=== PATIENT | male | born 1960 | race Native Hawaiian/Other Pacific Islander ===

== ENCOUNTER 2019-07-21 10:59 | Outpatient (CLI) | payer OTHER, BC | END 2019-07-21 23:20 | disposition home or self-care (01) | LOC: US 10:59 | DX: M79.662 Pain in left lower leg (principal); R22.42 Localized swelling, mass and lump, left lower limb ==

== ENCOUNTER 2020-03-06 10:28 | Outpatient (CLI) | payer OTHER, BC ==
[2020-03-06 11:01] LABS: PLATELET COUNT 161 K/uL (142-355)
[2020-03-06 11:44] LABS: POTASSIUM 4.2 mmol/L (3.6-5.2)
== END 2020-03-06 19:03 | disposition home or self-care (01) ==
LOC: LABW 10:28
PROVIDERS: Internal Medicine
DX: E11.9 Type 2 diabetes mellitus without complications (principal); R53.83 Other fatigue; I10 Essential (primary) hypertension
CPT/HCPCS: 36415; 80053; 80061; 83036; 84439; 84443; 85027

== ENCOUNTER 2020-08-09 08:52 | Outpatient (CLI) | payer OTHER, BC | END 2020-08-09 19:09 | disposition home or self-care (01) | LOC: RESP 08:52 | DX: I10 Essential (primary) hypertension (principal); R06.02 Shortness of breath ==

== ENCOUNTER 2020-08-10 11:01 | Outpatient (CLI) | payer OTHER, BC | END 2020-08-10 19:11 | disposition home or self-care (01) | LOC: RESP 11:01 | DX: R06.02 Shortness of breath (principal); Z91.89 Other specified personal risk factors, not elsewhere classified ==

== ENCOUNTER 2021-01-10 13:14 | Outpatient (CLI) | payer BC ==
[~2021-01-10] VITALS: Ht 188 cm; Wt 173.7 kg
== END 2021-01-10 22:16 | disposition home or self-care (01) ==
LOC: DIABINF 13:14
PROVIDERS: ATTEND Internal Medicine Endocrinology, Diabetes & Metabolism
DX: E11.42 Type 2 diabetes mellitus with diabetic polyneuropathy (principal); I10 Essential (primary) hypertension; N40.0 Benign prostatic hyperplasia without lower urinary tract symptoms; F41.9 Anxiety disorder, unspecified; E66.01 Morbid (severe) obesity due to excess calories; E55.9 Vitamin D deficiency, unspecified
CPT/HCPCS: 82948; 96365; 96366; 96521; 99204; J1718; J1815

== ENCOUNTER 2021-01-11 12:30 | Outpatient (CLI) | payer BC ==
[~2021-01-11] VITALS: Ht 188 cm; Wt 173.7 kg
== END 2021-01-11 20:48 | disposition home or self-care (01) ==
LOC: DIABINF 12:30
PROVIDERS: ATTEND Internal Medicine Endocrinology, Diabetes & Metabolism
DX: E11.42 Type 2 diabetes mellitus with diabetic polyneuropathy (principal); I10 Essential (primary) hypertension; N40.0 Benign prostatic hyperplasia without lower urinary tract symptoms; F41.9 Anxiety disorder, unspecified; E66.01 Morbid (severe) obesity due to excess calories; E55.9 Vitamin D deficiency, unspecified; E11.65 Type 2 diabetes mellitus with hyperglycemia; I73.89 Other specified peripheral vascular diseases; M54.16 Radiculopathy, lumbar region
CPT/HCPCS: 82948; 96365; 96366; 96521; 99214; J1718; J1815

== ENCOUNTER 2021-01-17 12:56 | Outpatient (CLI) | payer BC ==
[~2021-01-17] VITALS: Ht 188 cm; Wt 173.7 kg
== END 2021-01-17 20:51 | disposition home or self-care (01) ==
LOC: DIABINF 12:56
PROVIDERS: ATTEND Internal Medicine Endocrinology, Diabetes & Metabolism
DX: E11.42 Type 2 diabetes mellitus with diabetic polyneuropathy (principal); E11.65 Type 2 diabetes mellitus with hyperglycemia; I10 Essential (primary) hypertension; N40.0 Benign prostatic hyperplasia without lower urinary tract symptoms; F41.9 Anxiety disorder, unspecified; E66.01 Morbid (severe) obesity due to excess calories; E55.9 Vitamin D deficiency, unspecified; M54.16 Radiculopathy, lumbar region
CPT/HCPCS: 82948; 96365; 96366; 96521; 99214; J1718; J1815

== ENCOUNTER 2021-01-18 11:13 | Outpatient (CLI) | payer BC ==
[~2021-01-18] VITALS: Ht 188 cm; Wt 173.7 kg
== END 2021-01-18 21:51 | disposition home or self-care (01) ==
LOC: DIABINF 11:13
PROVIDERS: ATTEND Internal Medicine Endocrinology, Diabetes & Metabolism
DX: E11.65 Type 2 diabetes mellitus with hyperglycemia (principal); E11.42 Type 2 diabetes mellitus with diabetic polyneuropathy; N40.0 Benign prostatic hyperplasia without lower urinary tract symptoms; F41.1 Generalized anxiety disorder; E66.01 Morbid (severe) obesity due to excess calories; Z68.42 Body mass index [BMI] 45.0-49.9, adult; I87.2 Venous insufficiency (chronic) (peripheral); E55.9 Vitamin D deficiency, unspecified; M19.09 Primary osteoarthritis, other specified site; M54.16 Radiculopathy, lumbar region
CPT/HCPCS: 82948; 96365; 96366; 96521; 99214; J1718; J1815

== ENCOUNTER 2021-01-24 12:19 | Outpatient (CLI) | payer BC ==
[~2021-01-24] VITALS: Ht 188 cm; Wt 173.7 kg
== END 2021-01-24 21:37 | disposition home or self-care (01) ==
LOC: DIABINF 12:19
PROVIDERS: ATTEND Internal Medicine Endocrinology, Diabetes & Metabolism
DX: E11.65 Type 2 diabetes mellitus with hyperglycemia (principal); E11.42 Type 2 diabetes mellitus with diabetic polyneuropathy; N40.0 Benign prostatic hyperplasia without lower urinary tract symptoms; F41.1 Generalized anxiety disorder; E66.01 Morbid (severe) obesity due to excess calories; Z68.42 Body mass index [BMI] 45.0-49.9, adult; I87.2 Venous insufficiency (chronic) (peripheral); E55.9 Vitamin D deficiency, unspecified; M19.09 Primary osteoarthritis, other specified site; M54.16 Radiculopathy, lumbar region
CPT/HCPCS: 82948; 96365; 96366; 96521; 99214; J1718; J1815

== ENCOUNTER 2021-01-25 12:19 | Outpatient (CLI) | payer BC ==
[~2021-01-25] VITALS: Ht 188 cm; Wt 173.7 kg
== END 2021-01-25 21:17 | disposition home or self-care (01) ==
LOC: DIABINF 12:19
PROVIDERS: ATTEND Internal Medicine Endocrinology, Diabetes & Metabolism
DX: E11.65 Type 2 diabetes mellitus with hyperglycemia (principal); E11.42 Type 2 diabetes mellitus with diabetic polyneuropathy; N40.0 Benign prostatic hyperplasia without lower urinary tract symptoms; F41.1 Generalized anxiety disorder; E66.01 Morbid (severe) obesity due to excess calories; Z68.42 Body mass index [BMI] 45.0-49.9, adult; I87.2 Venous insufficiency (chronic) (peripheral); E55.9 Vitamin D deficiency, unspecified; M19.09 Primary osteoarthritis, other specified site; M54.16 Radiculopathy, lumbar region
CPT/HCPCS: 82948; 96365; 96366; 96521; 99214; J1718; J1815

== ENCOUNTER 2021-01-31 12:54 | Outpatient (CLI) | payer BC ==
[~2021-01-31] VITALS: Ht 188 cm; Wt 173.7 kg
== END 2021-01-31 19:24 | disposition home or self-care (01) ==
LOC: DIABINF 12:54
PROVIDERS: ATTEND Internal Medicine Endocrinology, Diabetes & Metabolism
DX: E11.65 Type 2 diabetes mellitus with hyperglycemia (principal); E11.42 Type 2 diabetes mellitus with diabetic polyneuropathy; N40.0 Benign prostatic hyperplasia without lower urinary tract symptoms; F41.1 Generalized anxiety disorder; E66.01 Morbid (severe) obesity due to excess calories; Z68.42 Body mass index [BMI] 45.0-49.9, adult; I87.2 Venous insufficiency (chronic) (peripheral); E55.9 Vitamin D deficiency, unspecified; M15.0 Primary generalized (osteo)arthritis; M54.16 Radiculopathy, lumbar region; S80.812A Abrasion, left lower leg, initial encounter
CPT/HCPCS: 82948; 96365; 96366; 96521; 99214; J1718; J1815

== ENCOUNTER 2021-02-07 12:56 | Outpatient (CLI) | payer BC ==
[~2021-02-07] VITALS: Ht 188 cm; Wt 173.7 kg
== END 2021-02-07 19:15 | disposition home or self-care (01) ==
LOC: DIABINF 12:56
PROVIDERS: ATTEND Internal Medicine Endocrinology, Diabetes & Metabolism
DX: E11.65 Type 2 diabetes mellitus with hyperglycemia (principal); E11.42 Type 2 diabetes mellitus with diabetic polyneuropathy; N40.0 Benign prostatic hyperplasia without lower urinary tract symptoms; F41.1 Generalized anxiety disorder; E66.01 Morbid (severe) obesity due to excess calories; Z68.42 Body mass index [BMI] 45.0-49.9, adult; I87.2 Venous insufficiency (chronic) (peripheral); E55.9 Vitamin D deficiency, unspecified; M15.0 Primary generalized (osteo)arthritis; M54.16 Radiculopathy, lumbar region; S80.812A Abrasion, left lower leg, initial encounter
CPT/HCPCS: 82948; 96365; 96366; 96521; 99213; J1718; J1815

== ENCOUNTER 2021-02-14 12:16 | Outpatient (CLI) | payer BC ==
[~2021-02-14] VITALS: Ht 185.4 cm; Wt 173.7 kg
== END 2021-02-14 19:48 | disposition home or self-care (01) ==
LOC: DIABINF 12:16
PROVIDERS: ATTEND Internal Medicine Endocrinology, Diabetes & Metabolism
DX: E11.65 Type 2 diabetes mellitus with hyperglycemia (principal); E11.42 Type 2 diabetes mellitus with diabetic polyneuropathy; N40.0 Benign prostatic hyperplasia without lower urinary tract symptoms; F41.1 Generalized anxiety disorder; E66.01 Morbid (severe) obesity due to excess calories; Z68.42 Body mass index [BMI] 45.0-49.9, adult; I87.2 Venous insufficiency (chronic) (peripheral); E55.9 Vitamin D deficiency, unspecified; M15.0 Primary generalized (osteo)arthritis; M54.16 Radiculopathy, lumbar region; S80.812A Abrasion, left lower leg, initial encounter
CPT/HCPCS: 82948; 96365; 96366; 96521; 99214; J1718; J1815

== ENCOUNTER 2021-02-21 12:32 | Outpatient (CLI) | payer BC ==
[~2021-02-21] VITALS: Ht 188 cm; Wt 173.7 kg
== END 2021-02-21 19:35 | disposition home or self-care (01) ==
LOC: DIABINF 12:32
PROVIDERS: ATTEND Internal Medicine Endocrinology, Diabetes & Metabolism
DX: E11.65 Type 2 diabetes mellitus with hyperglycemia (principal); E11.42 Type 2 diabetes mellitus with diabetic polyneuropathy; N40.0 Benign prostatic hyperplasia without lower urinary tract symptoms; F41.1 Generalized anxiety disorder; E66.01 Morbid (severe) obesity due to excess calories; Z68.42 Body mass index [BMI] 45.0-49.9, adult; I87.2 Venous insufficiency (chronic) (peripheral); E55.9 Vitamin D deficiency, unspecified; M15.0 Primary generalized (osteo)arthritis; M54.16 Radiculopathy, lumbar region; S80.812A Abrasion, left lower leg, initial encounter
CPT/HCPCS: 82948; 96365; 96366; 96521; 99214; J1718; J1815

== ENCOUNTER 2021-02-28 12:17 | Outpatient (CLI) | payer BC ==
[~2021-02-28] VITALS: Ht 188 cm; Wt 173.7 kg
== END 2021-02-28 19:38 | disposition home or self-care (01) ==
LOC: DIABINF 12:17
PROVIDERS: ATTEND Internal Medicine Endocrinology, Diabetes & Metabolism
DX: E11.65 Type 2 diabetes mellitus with hyperglycemia (principal); E11.42 Type 2 diabetes mellitus with diabetic polyneuropathy; N40.0 Benign prostatic hyperplasia without lower urinary tract symptoms; F41.1 Generalized anxiety disorder; E66.01 Morbid (severe) obesity due to excess calories; Z68.42 Body mass index [BMI] 45.0-49.9, adult; I87.2 Venous insufficiency (chronic) (peripheral); E55.9 Vitamin D deficiency, unspecified; M15.0 Primary generalized (osteo)arthritis; M54.16 Radiculopathy, lumbar region; S80.812A Abrasion, left lower leg, initial encounter
CPT/HCPCS: 82948; 96365; 96366; 96521; 99214; J1718; J1815

== ENCOUNTER 2021-03-07 12:22 | Outpatient (CLI) | payer BC ==
[~2021-03-07] VITALS: Ht 188 cm; Wt 173.7 kg
== END 2021-03-07 23:41 | disposition home or self-care (01) ==
LOC: DIABINF 12:22
PROVIDERS: ATTEND Internal Medicine Endocrinology, Diabetes & Metabolism
DX: E11.65 Type 2 diabetes mellitus with hyperglycemia (principal); E11.42 Type 2 diabetes mellitus with diabetic polyneuropathy; N40.0 Benign prostatic hyperplasia without lower urinary tract symptoms; F41.1 Generalized anxiety disorder; E66.01 Morbid (severe) obesity due to excess calories; Z68.42 Body mass index [BMI] 45.0-49.9, adult; I87.2 Venous insufficiency (chronic) (peripheral); E55.9 Vitamin D deficiency, unspecified; M15.0 Primary generalized (osteo)arthritis; M54.16 Radiculopathy, lumbar region; S80.812A Abrasion, left lower leg, initial encounter
CPT/HCPCS: 82948; 96365; 96366; 96521; J1815; J1817

== ENCOUNTER 2021-03-14 12:22 | Outpatient (CLI) | payer BC ==
[~2021-03-14] VITALS: Ht 188 cm; Wt 173.7 kg
== END 2021-03-14 19:54 | disposition home or self-care (01) ==
LOC: DIABINF 12:22
PROVIDERS: ATTEND Internal Medicine Endocrinology, Diabetes & Metabolism
DX: E11.65 Type 2 diabetes mellitus with hyperglycemia (principal); E11.42 Type 2 diabetes mellitus with diabetic polyneuropathy; N40.0 Benign prostatic hyperplasia without lower urinary tract symptoms; F41.1 Generalized anxiety disorder; E66.01 Morbid (severe) obesity due to excess calories; Z68.42 Body mass index [BMI] 45.0-49.9, adult; I87.2 Venous insufficiency (chronic) (peripheral); E55.9 Vitamin D deficiency, unspecified; M15.0 Primary generalized (osteo)arthritis; M54.16 Radiculopathy, lumbar region; S80.812D Abrasion, left lower leg, subsequent encounter
CPT/HCPCS: 82948; 96365; 96366; 96521; J1815; J1817

== ENCOUNTER 2021-03-21 12:35 | Outpatient (CLI) | payer BC ==
[~2021-03-21] VITALS: Ht 188 cm; Wt 173.7 kg
== END 2021-03-21 21:01 | disposition home or self-care (01) ==
LOC: DIABINF 12:35
PROVIDERS: ATTEND Nurse Practitioner
DX: E11.65 Type 2 diabetes mellitus with hyperglycemia (principal); E11.42 Type 2 diabetes mellitus with diabetic polyneuropathy; N40.0 Benign prostatic hyperplasia without lower urinary tract symptoms; F41.1 Generalized anxiety disorder; E66.01 Morbid (severe) obesity due to excess calories; Z68.42 Body mass index [BMI] 45.0-49.9, adult; I87.2 Venous insufficiency (chronic) (peripheral); E55.9 Vitamin D deficiency, unspecified; M15.0 Primary generalized (osteo)arthritis; M54.16 Radiculopathy, lumbar region; S80.812D Abrasion, left lower leg, subsequent encounter
CPT/HCPCS: 82948; 96365; 96366; 96521; J1815; J1817

== ENCOUNTER 2021-03-29 12:36 | Outpatient (CLI) | payer BC ==
[~2021-03-29] VITALS: Ht 188 cm; Wt 173.7 kg
== END 2021-03-29 22:20 | disposition home or self-care (01) ==
LOC: DIABINF 12:36
PROVIDERS: ATTEND Internal Medicine Endocrinology, Diabetes & Metabolism
DX: E11.65 Type 2 diabetes mellitus with hyperglycemia (principal); E11.42 Type 2 diabetes mellitus with diabetic polyneuropathy; N40.0 Benign prostatic hyperplasia without lower urinary tract symptoms; F41.1 Generalized anxiety disorder; E66.01 Morbid (severe) obesity due to excess calories; Z68.42 Body mass index [BMI] 45.0-49.9, adult; I87.2 Venous insufficiency (chronic) (peripheral); E55.9 Vitamin D deficiency, unspecified; M15.0 Primary generalized (osteo)arthritis; M54.16 Radiculopathy, lumbar region
CPT/HCPCS: 82948; 96365; 96366; 96521; J1815; J1817

== ENCOUNTER 2021-04-04 12:36 | Outpatient (CLI) | payer BC ==
[~2021-04-04] VITALS: Ht 188 cm; Wt 165.1 kg
== END 2021-04-04 21:49 | disposition home or self-care (01) ==
LOC: DIABINF 12:36
PROVIDERS: ATTEND Internal Medicine Endocrinology, Diabetes & Metabolism
DX: E11.65 Type 2 diabetes mellitus with hyperglycemia (principal); E11.42 Type 2 diabetes mellitus with diabetic polyneuropathy; N40.0 Benign prostatic hyperplasia without lower urinary tract symptoms; F41.1 Generalized anxiety disorder; E66.01 Morbid (severe) obesity due to excess calories; Z68.42 Body mass index [BMI] 45.0-49.9, adult; I87.2 Venous insufficiency (chronic) (peripheral); E55.9 Vitamin D deficiency, unspecified; M15.0 Primary generalized (osteo)arthritis; M54.16 Radiculopathy, lumbar region
CPT/HCPCS: 82948; 96365; 96366; 96521; J1815; J1817

== ENCOUNTER 2021-04-11 12:40 | Outpatient (CLI) | payer BC ==
[~2021-04-11] VITALS: Ht 188 cm; Wt 165.1 kg
== END 2021-04-11 20:02 | disposition home or self-care (01) ==
LOC: DIABINF 12:40
PROVIDERS: ATTEND Internal Medicine Endocrinology, Diabetes & Metabolism
DX: E11.42 Type 2 diabetes mellitus with diabetic polyneuropathy (principal); E11.65 Type 2 diabetes mellitus with hyperglycemia; E66.01 Morbid (severe) obesity due to excess calories; N40.0 Benign prostatic hyperplasia without lower urinary tract symptoms; I10 Essential (primary) hypertension; E78.2 Mixed hyperlipidemia; M19.91 Primary osteoarthritis, unspecified site
CPT/HCPCS: 82948; 96365; 96366; 96521; J1815; J1817

== ENCOUNTER 2021-04-18 12:17 | Outpatient (CLI) | payer BC ==
[~2021-04-18] VITALS: Ht 188 cm; Wt 165.1 kg
== END 2021-04-18 16:00 | disposition home or self-care (01) ==
LOC: DIABINF 12:17
PROVIDERS: ATTEND Internal Medicine Endocrinology, Diabetes & Metabolism
DX: E11.42 Type 2 diabetes mellitus with diabetic polyneuropathy (principal); E11.65 Type 2 diabetes mellitus with hyperglycemia; E66.01 Morbid (severe) obesity due to excess calories; N40.0 Benign prostatic hyperplasia without lower urinary tract symptoms; I10 Essential (primary) hypertension; E78.2 Mixed hyperlipidemia; M19.91 Primary osteoarthritis, unspecified site
CPT/HCPCS: 82948; 96365; 96366; 96521; J1815; J1817

== ENCOUNTER 2021-04-25 12:30 | Outpatient (CLI) | payer BC ==
[~2021-04-25] VITALS: Ht 188 cm; Wt 165.1 kg
== END 2021-04-25 16:00 | disposition home or self-care (01) ==
LOC: DIABINF 12:30
PROVIDERS: ATTEND Nurse Practitioner
DX: E11.65 Type 2 diabetes mellitus with hyperglycemia (principal); E66.01 Morbid (severe) obesity due to excess calories; N40.0 Benign prostatic hyperplasia without lower urinary tract symptoms; I10 Essential (primary) hypertension; E78.2 Mixed hyperlipidemia; M19.91 Primary osteoarthritis, unspecified site
CPT/HCPCS: 82948; 96365; 96366; 96521; J1815; J1817

== ENCOUNTER 2021-05-03 12:27 | Outpatient (CLI) | payer BC ==
[~2021-05-03] VITALS: Ht 188 cm; Wt 165.1 kg
== END 2021-05-03 19:17 | disposition home or self-care (01) ==
LOC: DIABINF 12:27
PROVIDERS: ATTEND Nurse Practitioner
DX: E11.42 Type 2 diabetes mellitus with diabetic polyneuropathy (principal); E11.65 Type 2 diabetes mellitus with hyperglycemia; E66.01 Morbid (severe) obesity due to excess calories; N40.0 Benign prostatic hyperplasia without lower urinary tract symptoms; I10 Essential (primary) hypertension; E78.2 Mixed hyperlipidemia; M19.91 Primary osteoarthritis, unspecified site
CPT/HCPCS: 82948; 96365; 96366; 96521; J1815; J1817

== ENCOUNTER 2021-05-09 12:54 | Outpatient (CLI) | payer BC ==
[~2021-05-09] VITALS: Ht 188 cm; Wt 165.3 kg
== END 2021-05-09 21:29 | disposition home or self-care (01) ==
LOC: DIABINF 12:54
PROVIDERS: ATTEND Nurse Practitioner
DX: E11.65 Type 2 diabetes mellitus with hyperglycemia (principal); E66.01 Morbid (severe) obesity due to excess calories; N40.0 Benign prostatic hyperplasia without lower urinary tract symptoms; I10 Essential (primary) hypertension; E78.2 Mixed hyperlipidemia; M19.91 Primary osteoarthritis, unspecified site
CPT/HCPCS: 82948; 96365; 96366; 96521; J1815; J1817

== ENCOUNTER 2021-05-16 12:33 | Outpatient (CLI) | payer BC ==
[~2021-05-16] VITALS: Ht 188 cm; Wt 165.1 kg
== END 2021-05-16 19:44 | disposition home or self-care (01) ==
LOC: DIABINF 12:33
PROVIDERS: ATTEND Nurse Practitioner
DX: E11.65 Type 2 diabetes mellitus with hyperglycemia (principal); E66.01 Morbid (severe) obesity due to excess calories; N40.0 Benign prostatic hyperplasia without lower urinary tract symptoms; I10 Essential (primary) hypertension; E78.2 Mixed hyperlipidemia; M19.90 Unspecified osteoarthritis, unspecified site
CPT/HCPCS: 82948; 96365; 96366; 96521; J1815; J1817

== ENCOUNTER 2021-05-23 12:40 | Outpatient (CLI) | payer BC ==
[~2021-05-23] VITALS: Ht 188 cm; Wt 165.1 kg
== END 2021-05-23 21:04 | disposition home or self-care (01) ==
LOC: DIABINF 12:40
PROVIDERS: ATTEND Nurse Practitioner
DX: E11.65 Type 2 diabetes mellitus with hyperglycemia (principal); E66.01 Morbid (severe) obesity due to excess calories; N40.0 Benign prostatic hyperplasia without lower urinary tract symptoms; I10 Essential (primary) hypertension; E78.2 Mixed hyperlipidemia; M19.90 Unspecified osteoarthritis, unspecified site; N43.2 Other hydrocele; Z98.890 Other specified postprocedural states; M48.061 Spinal stenosis, lumbar region without neurogenic claudication
CPT/HCPCS: 82948; 96365; 96366; 96521; J1815; J1817

== ENCOUNTER 2021-05-30 12:52 | Outpatient (CLI) | payer BC ==
[~2021-05-30] VITALS: Ht 188 cm; Wt 165.1 kg
== END 2021-05-30 22:44 | disposition home or self-care (01) ==
LOC: DIABINF 12:52
PROVIDERS: ATTEND Nurse Practitioner
DX: E11.65 Type 2 diabetes mellitus with hyperglycemia (principal); E66.01 Morbid (severe) obesity due to excess calories; N40.0 Benign prostatic hyperplasia without lower urinary tract symptoms; I10 Essential (primary) hypertension; E78.2 Mixed hyperlipidemia; M19.90 Unspecified osteoarthritis, unspecified site; N43.2 Other hydrocele; Z98.890 Other specified postprocedural states; M48.061 Spinal stenosis, lumbar region without neurogenic claudication
CPT/HCPCS: 82948; 96365; 96366; 96521; J1815; J1817

== ENCOUNTER 2021-06-06 12:49 | Outpatient (CLI) | payer BC ==
[~2021-06-06] VITALS: Ht 188 cm; Wt 165.1 kg
== END 2021-06-06 21:46 | disposition home or self-care (01) ==
LOC: DIABINF 12:49
PROVIDERS: ATTEND Nurse Practitioner
DX: E11.65 Type 2 diabetes mellitus with hyperglycemia (principal); E66.01 Morbid (severe) obesity due to excess calories; N40.0 Benign prostatic hyperplasia without lower urinary tract symptoms; I10 Essential (primary) hypertension; E78.2 Mixed hyperlipidemia; M19.90 Unspecified osteoarthritis, unspecified site; N43.2 Other hydrocele; Z98.890 Other specified postprocedural states; M48.061 Spinal stenosis, lumbar region without neurogenic claudication
CPT/HCPCS: 82948; 96365; 96366; 96521; J1815; J1817

== ENCOUNTER 2021-06-13 12:59 | Outpatient (CLI) | payer BC ==
[~2021-06-13] VITALS: Ht 188 cm; Wt 165.1 kg
== END 2021-06-13 19:13 | disposition home or self-care (01) ==
LOC: DIABINF 12:59
PROVIDERS: ATTEND Nurse Practitioner
DX: E11.65 Type 2 diabetes mellitus with hyperglycemia (principal); E66.01 Morbid (severe) obesity due to excess calories; N40.0 Benign prostatic hyperplasia without lower urinary tract symptoms; I10 Essential (primary) hypertension; E78.2 Mixed hyperlipidemia; M19.90 Unspecified osteoarthritis, unspecified site; N43.2 Other hydrocele; Z98.890 Other specified postprocedural states; M48.061 Spinal stenosis, lumbar region without neurogenic claudication
CPT/HCPCS: 82948; 96365; 96366; 96521; J1815; J1817

== ENCOUNTER 2021-06-20 12:52 | Outpatient (CLI) | payer BC ==
[~2021-06-20] VITALS: Ht 188 cm; Wt 165.1 kg
== END 2021-06-20 21:50 | disposition home or self-care (01) ==
LOC: DIABINF 12:52
PROVIDERS: ATTEND Nurse Practitioner
DX: E11.65 Type 2 diabetes mellitus with hyperglycemia (principal); E66.01 Morbid (severe) obesity due to excess calories; N40.0 Benign prostatic hyperplasia without lower urinary tract symptoms; I10 Essential (primary) hypertension; E78.2 Mixed hyperlipidemia; M19.90 Unspecified osteoarthritis, unspecified site
CPT/HCPCS: 82948; 96365; 96366; 96521; J1815; J1817

== ENCOUNTER 2021-06-27 12:51 | Outpatient (CLI) | payer BC ==
[~2021-06-27] VITALS: Ht 188 cm; Wt 165.1 kg
== END 2021-06-27 21:17 | disposition home or self-care (01) ==
LOC: DIABINF 12:51
PROVIDERS: ATTEND Nurse Practitioner
DX: E11.65 Type 2 diabetes mellitus with hyperglycemia (principal); E66.01 Morbid (severe) obesity due to excess calories; N40.0 Benign prostatic hyperplasia without lower urinary tract symptoms; I10 Essential (primary) hypertension; E78.2 Mixed hyperlipidemia; M19.90 Unspecified osteoarthritis, unspecified site
CPT/HCPCS: 82948; 96365; 96366; 96521; J1815; J1817